=== PATIENT | male | born 1945 | race Caucasian/White ===

== ENCOUNTER 2020-11-08 06:40 | Inpatient (IN) ==
[~2020-11-08 06:40] MED LIST: *HR* Etomidate 20 MG/10 ML AMPUL IVP ONE; *HR* PHENYLEPHRINE 1,000 MCG/10 ML SYRINGE IVP ONE; *HR* Rocuronium Bromide 50 MG/5 ML VIAL ONE; EPINEPHrine 1 MG/ML VIAL ONE; Famotidine 20 MG/2 ML VIAL ONE; NiCARdipine 2.5 MG/10 ML Syringe IVPB ONE
[2020-11-08] MEDS ORDERED: Protamine Sulfate 250 MG/25 ML VIAL IVP ONE (06:42)
[2020-11-08] MEDS ORDERED: Tranexamic Acid 1,000 MG/10 ML VIAL ONE ×2 (06:42→12:36)
[2020-11-08] MEDS ORDERED: Calcium Gluconate 1,000 MG/10 ML VIAL ONE (06:42)
[2020-11-08] MEDS ORDERED: *HR* FentaNYL (PF) 1,000 MCG/20 ML VIAL ONE (06:45)
[2020-11-08] MEDS ORDERED: *HR* Midazolam HCl 5 MG/5 ML VIAL IVP ONE (06:45)
[2020-11-08] MEDS ORDERED: Norepinephrine 4 MG in 0.9 % Sodium Chloride 250 ML IVC PRN (07:45)
[2020-11-08] MEDS ORDERED: Dextrose 50 % in Water (Vial) 30 ML, Sodium Bicarbonate 20 MEQ, Lidocaine 1% 5 ML, Insu... TH ONE ×3 (07:45)
[2020-11-08] MEDS ORDERED: Dextrose 50 % in Water (Vial) 30 ML, Sodium Bicarbonate 20 MEQ, Potassium Chloride 15 M... TH ONE (07:45)
[2020-11-08] MEDS ORDERED: Insulin Human Regular 100 UNIT in 0.9 % Sodium Chloride 100 ML IV PRN (07:45)
[2020-11-08] MEDS ORDERED: Heparin 15,000 UNIT in 0.9 % Sodium Chloride 500 ML IV ONE (07:45)
[2020-11-08] MEDS ORDERED: Vancomycin 1,250 MG/262.5 ML IV.SOLN IVPB ONE (07:51)
[2020-11-08] MEDS ORDERED: Chlorhexidine Rinse 15 ML MOUTHWASH MM ONE (07:54)
[2020-11-08] MEDS ORDERED: *HR* Heparin 10,000 UNIT/10 ML VIAL IR ONE (08:13)
[2020-11-08] MEDS ORDERED: *HR* Phenylephrine 10 MG/ML VIAL IVC ONE (08:13)
[2020-11-08] MEDS ORDERED: *HR* Magnesium Sulfate 2 GM/50 ML PIGGYBACK IVPB ONE (08:13)
[2020-11-08] MEDS ORDERED: Mannitol 25% vial 12.5 GM/50 ML VIAL IVPB ONE (08:13)
[2020-11-08] MEDS ORDERED: Albumin Human 25% 25 GM/100 ML IV.SOLN IVPB ONE (08:13)
[2020-11-08] MEDS ORDERED: Tranexamic Acid 1,000 MG/10 ML VIAL IR ONE (08:13)
[2020-11-08] MEDS ORDERED: Lidocaine 2% Syringe 100 MG/5 ML IVP ONE (08:13)
[2020-11-08] MEDS ORDERED: Ringers Solution, Lactated 1,000 ML IVC SCH (10:15)
[2020-11-08] MEDS ORDERED: Papaverine 60 MG/2 ML VIAL IVP ONE (10:52)
[2020-11-08 11:25] LABS: ABG Base Excess 0 mEq/L (-2 to 3); ABG Chloride 105 mEq/L (98-107); ABG Glucose 126 mg/dL (60-95); ABG HCO3 24 mEq/L (21-27); ABG Ionized Calcium 1.07 mmol/L (1.15-1.35); ABG Oxygen Saturation 100 % (95-98); ABG PCO2 35 mmHg (35-45); ABG PH 7.45 pH Units (7.32-7.45); ABG PO2 343 mmHg (85-104); ABG TCO2 25 mEq/L (20-26)
[2020-11-08] MEDS ORDERED: ceFAZolin 2,000 MG in Water for inj. (sterile) 20 ML IVP ONE (12:09)
[2020-11-08] MEDS ORDERED: Amiodarone Premix 360 MG/200 ML BAG IVC ONE ×2 (12:37→15:02)
[2020-11-08] MEDS ORDERED: *HR* Amiodarone 150 MG/3 ML VIAL IVPB ONE (12:37)
[2020-11-08 12:52] LABS: ABG Base Excess 0 mEq/L (-2 to 3); ABG Chloride 102 mEq/L (98-107); ABG Glucose 151 mg/dL (60-95); ABG HCO3 25 mEq/L (21-27); ABG Ionized Calcium 1.11 mmol/L (1.15-1.35); ABG Oxygen Saturation 100 % (95-98); ABG PCO2 39 mmHg (35-45); ABG PH 7.41 pH Units (7.32-7.45); ABG PO2 165 mmHg (85-104); ABG TCO2 26 mEq/L (20-26)
[2020-11-08 13:18] LABS: ABG Base Excess -1 mEq/L (-2 to 3); ABG Chloride 99 mEq/L (98-107); ABG Glucose 190 mg/dL (60-95); ABG HCO3 24 mEq/L (21-27); ABG Ionized Calcium 0.84 mmol/L (1.15-1.35); ABG PCO2 42 mmHg (35-45); ABG PH 7.37 pH Units (7.32-7.45); ABG PO2 > 630 mmHg (85-104); ABG TCO2 25 mEq/L (20-26)
[2020-11-08 13:46] LABS: ABG Base Excess 1 mEq/L (-2 to 3); ABG Chloride 98 mEq/L (98-107); ABG Glucose 222 mg/dL (60-95); ABG HCO3 26 mEq/L (21-27); ABG Ionized Calcium 0.89 mmol/L (1.15-1.35); ABG Oxygen Saturation 100 % (95-98); ABG PCO2 38 mmHg (35-45); ABG PH 7.44 pH Units (7.32-7.45); ABG PO2 578 mmHg (85-104); ABG TCO2 27 mEq/L (20-26)
[2020-11-08] MEDS ORDERED: Albumin Human 5% 12.5 GM/250 ML IV.SOLN ONE (14:16)
[2020-11-08 14:42] LABS: ABG Base Excess 0 mEq/L (-2 to 3); ABG Chloride 99 mEq/L (98-107); ABG Glucose 187 mg/dL (60-95); ABG HCO3 25 mEq/L (21-27); ABG Ionized Calcium 1.13 mmol/L (1.15-1.35); ABG Oxygen Saturation 96 % (95-98); ABG PCO2 44 mmHg (35-45); ABG PH 7.37 pH Units (7.32-7.45); ABG PO2 82 mmHg (85-104); ABG TCO2 27 mEq/L (20-26)
[2020-11-08] MEDS ORDERED: Potassium Chloride 40 MEQ/200 ML BAG IVPB PRN (15:02)
[2020-11-08] MEDS ORDERED: Insulin Regular, Human 100 UNIT/ML IV PRN (15:02)
[2020-11-08] MEDS ORDERED: Albumin Human 5% 12.5 GM/250 ML IV.SOLN IVPB PRN (15:02)
[2020-11-08] MEDS ORDERED: *HR* Dextrose 50 % in Water (Vial) 50 ML VIAL IVP PRN (15:02)
[2020-11-08] MEDS ORDERED: Acetaminophen 325 MG TABLET PO PRN (15:02)
[2020-11-08] MEDS: Norepinephrine 4 MG/254 ML IV.SOLN IVC SCH (15:13)
[2020-11-08] MEDS: Insulin Human Regular 100 UNIT in 0.9 % Sodium Chloride 100 ML IVC SCH (15:30)
[2020-11-08 15:38] LABS: ABG Base Excess 1 mEq/L (-2 to 3); ABG HCO3 25 mEq/L (21-27); ABG Oxygen Saturation 100 % (95-98); ABG PCO2 38 mmHg (35-45); ABG PH 7.43 pH Units (7.32-7.45); ABG PO2 174 mmHg (85-104); ABG TCO2 26 mEq/L (20-26); Blood Gas Modality ASSIST CONTROL; Blood Gas VT 550 cc
[2020-11-08 15:40] LABS: Basophils % 0.4 %; Eosinophils # 0.3 K/mcL (0.0-0.6); Eosinophils % 4.1 %; Hematocrit 26.1 % (37.5-50.1); Hemoglobin 8.8 g/dL (12.9-16.9); Immature Granulocytes % 1.4 % (0-4); Lymphocytes # 0.7 K/mcL (0.6-4.6); Lymphocytes % 9.1 %; Mean Corpuscular HGB Conc 33.7 g/dL (31.6-35.5); Mean Corpuscular Hemoglobin 29.2 pg (28.0-33.3); Mean Corpuscular Volume 86.7 fL (83.0-100.0); Monocytes # 0.7 K/mcL (0.0-1.3); Monocytes % 8.2 %; Neutrophils # 6.2 K/mcL (1.6-8.9); Platelet Count 213 K/mcL (140-400); Red Blood Count 3.01 M/mcL (4.19-5.50); Red Cell Distribution Width 13.3 % (11.5-14.5); Segmented Neutrophils % 76.8 %; White Blood Count 8.1 K/mcL (4.3-11.1)
[2020-11-08] MEDS: niCARdipine 20 MG/200 ML MLS IVC SCH ×2 (15:45→21:06)
[2020-11-08] MEDS: 0.9 % Sodium Chloride 1,000 ML IVC SCH (15:45)
[2020-11-08 15:48] LABS: INR 1.4; Prothrombin Time 16.2 Seconds (9.4-12.1)
[2020-11-08 15:51] LABS: Activated Partial Thrombo Time 28.9 Seconds (26.0-36.0)
[2020-11-08 15:55] LABS: Calcium 8.1 mg/dL (8.6-10.3); Magnesium 2.3 mg/dL (1.6-2.6); Potassium 4.3 mEq/L (3.5-5.1)
[2020-11-08] MEDS: CeFAZolin 2 GM/120 ML BAG IVPB SCH ×2 (16:00→23:14)
[2020-11-08] MEDS: Amiodarone Premix 360 MG/200 ML BAG IVC SCH (19:38)
[2020-11-08] MEDS: *HR* FentaNYL (PF) 100 MCG/2 ML VIAL IVP PRN (19:39)
[2020-11-08] MEDS: Chlorhexidine Rinse 15 ML MOUTHWASH MM SCH (19:47)
[2020-11-08 19:59] LABS: ABG Base Excess 0 mEq/L (-2 to 3); ABG HCO3 24 mEq/L (21-27); ABG Oxygen Saturation 97 % (95-98); ABG PCO2 36 mmHg (35-45); ABG PH 7.44 pH Units (7.32-7.45); ABG PO2 85 mmHg (85-104); ABG TCO2 25 mEq/L (20-26); Blood Gas Modality ASSIST CONTROL; Blood Gas VT 550 cc
[2020-11-08] MEDS: *HR* OxyCODONE/APAP 5/325 TABLET PO PRN (22:22)
[2020-11-08 23:05] LABS: ABG Base Excess 0 mEq/L (-2 to 3); ABG HCO3 26 mEq/L (21-27); ABG Oxygen Saturation 95 % (95-98); ABG PCO2 47 mmHg (35-45); ABG PH 7.35 pH Units (7.32-7.45); ABG PO2 81 mmHg (85-104); ABG TCO2 28 mEq/L (20-26); Blood Gas Modality ASSIST CONTROL; Blood Gas VT 550 cc
[2020-11-08 23:44] LABS: ABG Base Excess 0 mEq/L (-2 to 3); ABG HCO3 26 mEq/L (21-27); ABG Oxygen Saturation 92 % (95-98); ABG PCO2 47 mmHg (35-45); ABG PH 7.35 pH Units (7.32-7.45); ABG PO2 66 mmHg (85-104); ABG TCO2 28 mEq/L (20-26)
[2020-11-09] MEDS: niCARdipine 20 MG/200 ML MLS IVC SCH ×5 (03:05→20:01)
[2020-11-09] MEDS: *HR* OxyCODONE/APAP 5/325 TABLET PO PRN ×5 (03:11→23:01)
[2020-11-09 04:24] LABS: Basophils % 0.4 %; Eosinophils % 0.1 %; Hematocrit 29.4 % (37.5-50.1); Hemoglobin 9.6 g/dL (12.9-16.9); Immature Granulocytes % 0.6 % (0-4); Lymphocytes # 0.7 K/mcL (0.6-4.6); Lymphocytes % 6.6 %; Mean Corpuscular HGB Conc 32.7 g/dL (31.6-35.5); Mean Corpuscular Hemoglobin 28.8 pg (28.0-33.3); Mean Corpuscular Volume 88.3 fL (83.0-100.0); Mean Platelet Volume 10.7 fL (9.4-12.4); Monocytes # 0.9 K/mcL (0.0-1.3); Monocytes % 8.4 %; Neutrophils # 8.6 K/mcL (1.6-8.9); Platelet Count 240 K/mcL (140-400); Red Blood Count 3.33 M/mcL (4.19-5.50); Red Cell Distribution Width 13.6 % (11.5-14.5); Segmented Neutrophils % 83.9 %; White Blood Count 10.2 K/mcL (4.3-11.1)
[2020-11-09 04:38] LABS: Potassium 4.9 mEq/L (3.5-5.1)
[2020-11-09] MEDS: 0.9 % Sodium Chloride 1,000 ML IVC SCH ×2 (05:17→19:28)
[2020-11-09] MEDS: Amiodarone Premix 360 MG/200 ML BAG IVC SCH (06:05)
[2020-11-09] MEDS: Pantoprazole 40 MG VIAL IVP SCH (07:11)
[2020-11-09] MEDS: Chlorhexidine Rinse 15 ML MOUTHWASH MM SCH ×2 (07:12→19:28)
[2020-11-09] MEDS: *HR* FentaNYL (PF) 100 MCG/2 ML VIAL IVP PRN (10:42)
[2020-11-09] MEDS: Norepinephrine 4 MG/254 ML IV.SOLN IVC SCH (15:22)
[2020-11-09] MEDS: DilTIAZem 50 MG/50 ML IV.SOLN IVC SCH ×2 (15:40→19:32)
[2020-11-09] MEDS: Insulin Human Regular 100 UNIT in 0.9 % Sodium Chloride 100 ML IVC SCH (17:26)
[2020-11-09] MEDS: Insulin LISPRO 300 UNITS/3 ML VIAL SUBQ SCH (19:29)
[2020-11-09] MEDS: *HR* Heparin 5,000 UNIT/ML VIAL SQ SCH (20:01)
[2020-11-09] MEDS ORDERED: Insulin LISPRO 300 UNITS/3 ML VIAL SUBQ SCH (21:00)
[2020-11-10] MEDS: niCARdipine 20 MG/200 ML MLS IVC SCH ×3 (00:05→03:42)
[2020-11-10] MEDS: DilTIAZem 50 MG/50 ML IV.SOLN IVC SCH ×6 (00:20→23:06)
[2020-11-10 04:09] LABS: Basophils % 0.3 %; Eosinophils % 0.2 %; Hemoglobin 9.3 g/dL (12.9-16.9); Immature Granulocytes % 0.5 % (0-4); Lymphocytes # 1.2 K/mcL (0.6-4.6); Lymphocytes % 9.3 %; Mean Corpuscular HGB Conc 32.1 g/dL (31.6-35.5); Mean Corpuscular Hemoglobin 28.6 pg (28.0-33.3); Mean Corpuscular Volume 89.2 fL (83.0-100.0); Mean Platelet Volume 10.4 fL (9.4-12.4); Monocytes # 1.3 K/mcL (0.0-1.3); Monocytes % 10.7 %; Neutrophils # 9.8 K/mcL (1.6-8.9); Platelet Count 232 K/mcL (140-400); Red Blood Count 3.25 M/mcL (4.19-5.50); Red Cell Distribution Width 13.9 % (11.5-14.5); White Blood Count 12.4 K/mcL (4.3-11.1)
[2020-11-10 04:24] LABS: Calcium 7.8 mg/dL (8.6-10.3); Potassium 4.6 mEq/L (3.5-5.1)
[2020-11-10] MEDS: *HR* Heparin 5,000 UNIT/ML VIAL SQ SCH ×2 (05:29→16:25)
[2020-11-10] MEDS: *HR* OxyCODONE/APAP 5/325 TABLET PO PRN ×2 (05:30→19:35)
[2020-11-10] MEDS: 0.9 % Sodium Chloride 1,000 ML IVC SCH (08:09)
[2020-11-10] MEDS: Insulin LISPRO 300 UNITS/3 ML VIAL SUBQ SCH ×4 (08:10→19:26)
[2020-11-10] MEDS: Chlorhexidine Rinse 15 ML MOUTHWASH MM SCH ×2 (08:10→19:26)
[2020-11-10] MEDS: Pantoprazole 40 MG VIAL IVP SCH (08:11)
[2020-11-10] MEDS ORDERED: *HR* Amiodarone 200 MG TABLET PO SCH (09:00)
[2020-11-10] MEDS ORDERED: 0.9 % Sodium Chloride 1,000 ML IVC SCH (10:12)
[2020-11-10] MEDS ORDERED: Dextrose Gel 15 GM/37.5 ML TUBE PO PRN ×2 (10:12)
[2020-11-10] MEDS ORDERED: *HR* Dextrose 50 % in Water (Vial) 50 ML VIAL IVP PRN (10:12)
[2020-11-10] MEDS ORDERED: D5% in Water 1,000 ML IVC PRN (10:12)
[2020-11-10] MEDS: Insulin DETEMIR 100 UNIT/ML X5UNITS SUBQ SCH (19:26)
[2020-11-10] MEDS ORDERED: Furosemide 40 MG/4 ML VIAL IVP ONE (21:49)
[2020-11-11] MEDS: *HR* OxyCODONE/APAP 5/325 TABLET PO PRN (04:29)
[2020-11-11 04:30] LABS: Basophils % 0.3 %; Eosinophils # 0.2 K/mcL (0.0-0.6); Eosinophils % 1.5 %; Hematocrit 25.9 % (37.5-50.1); Hemoglobin 8.1 g/dL (12.9-16.9); Immature Granulocytes % 0.7 % (0-4); Lymphocytes # 0.9 K/mcL (0.6-4.6); Lymphocytes % 8.2 %; Mean Corpuscular HGB Conc 31.3 g/dL (31.6-35.5); Mean Corpuscular Hemoglobin 28.4 pg (28.0-33.3); Mean Corpuscular Volume 90.9 fL (83.0-100.0); Mean Platelet Volume 11.1 fL (9.4-12.4); Monocytes % 9.1 %; Neutrophils # 8.9 K/mcL (1.6-8.9); Platelet Count 201 K/mcL (140-400); Red Blood Count 2.85 M/mcL (4.19-5.50); Red Cell Distribution Width 13.7 % (11.5-14.5); Segmented Neutrophils % 80.2 %; White Blood Count 11.1 K/mcL (4.3-11.1)
[2020-11-11] MEDS: DilTIAZem 50 MG/50 ML IV.SOLN IVC SCH ×2 (04:30→14:36)
[2020-11-11 04:49] LABS: Calcium 7.5 mg/dL (8.6-10.3); Potassium 3.8 mEq/L (3.5-5.1)
[2020-11-11] MEDS: *HR* Heparin 5,000 UNIT/ML VIAL SQ SCH ×2 (05:09→17:52)
[2020-11-11] MEDS ORDERED: Furosemide 40 MG/4 ML VIAL IVP ONE ×2 (06:00→11:20)
[2020-11-11] MEDS: *HR* Amiodarone 200 MG TABLET PO SCH (07:43)
[2020-11-11] MEDS: Insulin LISPRO 300 UNITS/3 ML VIAL SUBQ SCH ×8 (07:43→20:18)
[2020-11-11] MEDS: Pantoprazole 40 MG VIAL IVP SCH (07:43)
[2020-11-11] MEDS: Chlorhexidine Rinse 15 ML MOUTHWASH MM SCH ×2 (07:43→20:15)
[2020-11-11] MEDS ORDERED: Albumin 25% 25gram/100mL 25 GM/100 ML IV.SOLN IVPB ONE (11:18)
[2020-11-11] MEDS: Insulin DETEMIR 100 UNIT/ML X5UNITS SUBQ SCH (20:15)
[2020-11-12] MEDS: Acetaminophen 325 MG TABLET PO PRN (03:29)
[2020-11-12] MEDS: DilTIAZem 50 MG/50 ML IV.SOLN IVC SCH ×3 (04:23→22:54)
[2020-11-12 04:31] LABS: Basophils % 0.4 %; Eosinophils # 0.5 K/mcL (0.0-0.6); Eosinophils % 4.8 %; Hemoglobin 8.1 g/dL (12.9-16.9); Lymphocytes # 1.3 K/mcL (0.6-4.6); Lymphocytes % 12.6 %; Mean Corpuscular HGB Conc 32.4 g/dL (31.6-35.5); Mean Corpuscular Hemoglobin 28.7 pg (28.0-33.3); Mean Corpuscular Volume 88.7 fL (83.0-100.0); Mean Platelet Volume 10.4 fL (9.4-12.4); Monocytes # 0.9 K/mcL (0.0-1.3); Monocytes % 9.3 %; Neutrophils # 7.2 K/mcL (1.6-8.9); Platelet Count 193 K/mcL (140-400); Red Blood Count 2.82 M/mcL (4.19-5.50); Red Cell Distribution Width 13.8 % (11.5-14.5); Segmented Neutrophils % 71.9 %
[2020-11-12 05:09] LABS: Potassium 3.8 mEq/L (3.5-5.1)
[2020-11-12 05:10] LABS: Calcium 7.7 mg/dL (8.6-10.3)
[2020-11-12] MEDS: *HR* Heparin 5,000 UNIT/ML VIAL SQ SCH ×2 (05:50→17:15)
[2020-11-12] MEDS: Insulin LISPRO 300 UNITS/3 ML VIAL SUBQ SCH ×8 (07:23→20:12)
[2020-11-12] MEDS: Pantoprazole 40 MG VIAL IVP SCH (08:22)
[2020-11-12] MEDS: Chlorhexidine Rinse 15 ML MOUTHWASH MM SCH ×2 (08:22→20:11)
[2020-11-12] MEDS: *HR* Amiodarone 200 MG TABLET PO SCH (08:23)
[2020-11-12] MEDS: *HR* OxyCODONE/APAP 5/325 TABLET PO PRN (08:32)
[2020-11-12] MEDS: Insulin DETEMIR 100 UNIT/ML X5UNITS SUBQ SCH (20:11)
[2020-11-13] MEDS ORDERED: *HR* Atropine Sulfate 1 MG/10 ML SYRINGE ONE (01:52)
[2020-11-13 03:34] LABS: Basophils % 0.3 %; Eosinophils # 0.4 K/mcL (0.0-0.6); Eosinophils % 3.9 %; Hematocrit 25.5 % (37.5-50.1); Hemoglobin 8.2 g/dL (12.9-16.9); Immature Granulocytes % 0.8 % (0-4); Lymphocytes # 1.3 K/mcL (0.6-4.6); Lymphocytes % 11.8 %; Mean Corpuscular HGB Conc 32.2 g/dL (31.6-35.5); Mean Corpuscular Hemoglobin 28.4 pg (28.0-33.3); Mean Corpuscular Volume 88.2 fL (83.0-100.0); Mean Platelet Volume 10.7 fL (9.4-12.4); Monocytes % 9.2 %; Neutrophils # 7.9 K/mcL (1.6-8.9); Platelet Count 215 K/mcL (140-400); Red Blood Count 2.89 M/mcL (4.19-5.50); Red Cell Distribution Width 13.9 % (11.5-14.5); White Blood Count 10.6 K/mcL (4.3-11.1)
[2020-11-13 03:35] LABS: VBG Ionized Calcium 1.08 mmol/L (1.15-1.35)
[2020-11-13 03:53] LABS: Calcium 8.1 mg/dL (8.6-10.3); Magnesium 1.9 mg/dL (1.6-2.6); Phosphorous 3.5 mg/dL (2.7-4.5)
[2020-11-13] MEDS: *HR* Heparin 5,000 UNIT/ML VIAL SQ SCH ×2 (06:18→17:01)
[2020-11-13] MEDS: Insulin LISPRO 300 UNITS/3 ML VIAL SUBQ SCH ×8 (08:04→20:02)
[2020-11-13] MEDS: Pantoprazole 40 MG VIAL IVP SCH (08:10)
[2020-11-13] MEDS: *HR* Amiodarone 200 MG TABLET PO SCH (08:10)
[2020-11-13] MEDS: Chlorhexidine Rinse 15 ML MOUTHWASH MM SCH ×2 (08:10→20:00)
[2020-11-13] MEDS: DilTIAZem 50 MG/50 ML IV.SOLN IVC SCH ×2 (10:10→15:41)
[2020-11-13] MEDS: Insulin DETEMIR 100 UNIT/ML X5UNITS SUBQ SCH (20:01)
[2020-11-14] MEDS: DilTIAZem 50 MG/50 ML IV.SOLN IVC SCH (03:09)
[2020-11-14 04:01] LABS: VBG Ionized Calcium 1.12 mmol/L (1.15-1.35)
[2020-11-14 04:02] LABS: Hematocrit 25.6 % (37.5-50.1); Hemoglobin 8.5 g/dL (12.9-16.9); Mean Corpuscular HGB Conc 33.2 g/dL (31.6-35.5); Mean Corpuscular Hemoglobin 29.5 pg (28.0-33.3); Mean Corpuscular Volume 88.9 fL (83.0-100.0); Mean Platelet Volume 10.5 fL (9.4-12.4); Platelet Count 229 K/mcL (140-400); Red Blood Count 2.88 M/mcL (4.19-5.50); Red Cell Distribution Width 13.8 % (11.5-14.5)
[2020-11-14 04:21] LABS: Calcium 8.3 mg/dL (8.6-10.3); Phosphorous 3.3 mg/dL (2.7-4.5); Potassium 3.8 mEq/L (3.5-5.1)
[2020-11-14] MEDS: *HR* Heparin 5,000 UNIT/ML VIAL SQ SCH ×2 (05:01→17:27)
[2020-11-14] MEDS: Insulin LISPRO 300 UNITS/3 ML VIAL SUBQ SCH ×6 (08:09→20:49)
[2020-11-14] MEDS: Chlorhexidine Rinse 15 ML MOUTHWASH MM SCH ×2 (08:09→20:48)
[2020-11-14] MEDS: Pantoprazole 40 MG VIAL IVP SCH (08:09)
[2020-11-14] MEDS: *HR* Amiodarone 200 MG TABLET PO SCH (08:10)
[2020-11-14] MEDS: *HR* OxyCODONE/APAP 5/325 TABLET PO PRN ×3 (10:03→22:39)
[2020-11-14] MEDS: Insulin DETEMIR 100 UNIT/ML X5UNITS SUBQ SCH (20:49)
[2020-11-15 04:22] LABS: Basophils # 0.1 K/mcL (0.0-0.2); Basophils % 0.6 %; Eosinophils # 0.4 K/mcL (0.0-0.6); Eosinophils % 4.8 %; Hematocrit 24.9 % (37.5-50.1); Hemoglobin 8.1 g/dL (12.9-16.9); Immature Granulocytes % 1.3 % (0-4); Lymphocytes # 1.5 K/mcL (0.6-4.6); Lymphocytes % 16.9 %; Mean Corpuscular HGB Conc 32.5 g/dL (31.6-35.5); Mean Corpuscular Hemoglobin 28.5 pg (28.0-33.3); Mean Corpuscular Volume 87.7 fL (83.0-100.0); Mean Platelet Volume 10.3 fL (9.4-12.4); Monocytes # 0.9 K/mcL (0.0-1.3); Monocytes % 10.6 %; Neutrophils # 5.7 K/mcL (1.6-8.9); Platelet Count 220 K/mcL (140-400); Red Blood Count 2.84 M/mcL (4.19-5.50); Red Cell Distribution Width 14.1 % (11.5-14.5); Segmented Neutrophils % 65.8 %; White Blood Count 8.6 K/mcL (4.3-11.1)
[2020-11-15 04:42] LABS: Calcium 8.2 mg/dL (8.6-10.3); Potassium 3.8 mEq/L (3.5-5.1)
[2020-11-15] MEDS: *HR* Heparin 5,000 UNIT/ML VIAL SQ SCH ×2 (05:44→18:17)
[2020-11-15] MEDS: Insulin LISPRO 300 UNITS/3 ML VIAL SUBQ SCH ×4 (08:19→19:36)
[2020-11-15] MEDS: *HR* Amiodarone 200 MG TABLET PO SCH (08:28)
[2020-11-15] MEDS: Chlorhexidine Rinse 15 ML MOUTHWASH MM SCH ×2 (08:29→19:36)
[2020-11-15] MEDS: *HR* OxyCODONE/APAP 5/325 TABLET PO PRN ×3 (09:39→21:18)
[2020-11-15] MEDS: DilTIAZem CD (24hr) 180 MG CAP.ER.24H PO SCH (11:07)
[2020-11-15] MEDS: Insulin DETEMIR 100 UNIT/ML X5UNITS SUBQ SCH (19:36)
[2020-11-16] MEDS: *HR* Heparin 5,000 UNIT/ML VIAL SQ SCH ×2 (05:27→17:56)
[2020-11-16 07:41] LABS: Calcium 8.5 mg/dL (8.6-10.3); Potassium 4.5 mEq/L (3.5-5.1)
[2020-11-16] MEDS: Insulin LISPRO 300 UNITS/3 ML VIAL SUBQ SCH ×4 (08:16→20:31)
[2020-11-16] MEDS: DilTIAZem CD (24hr) 180 MG CAP.ER.24H PO SCH (08:18)
[2020-11-16] MEDS: *HR* Amiodarone 200 MG TABLET PO SCH (08:18)
[2020-11-16] MEDS: Chlorhexidine Rinse 15 ML MOUTHWASH MM SCH ×2 (08:22→20:30)
[2020-11-16] MEDS: *HR* OxyCODONE/APAP 5/325 TABLET PO PRN ×4 (08:23→23:18)
[2020-11-16] MEDS: *HR* Warfarin 2.5 MG TABLET PO SCH (17:55)
[2020-11-16] MEDS: Insulin DETEMIR 100 UNIT/ML X5UNITS SUBQ SCH (20:31)
[2020-11-17 01:20] LABS: Calcium 8.2 mg/dL (8.6-10.3)
[2020-11-17] MEDS: *HR* Heparin 5,000 UNIT/ML VIAL SQ SCH ×2 (04:54→17:35)
[2020-11-17] MEDS: *HR* OxyCODONE/APAP 5/325 TABLET PO PRN ×3 (04:54→15:44)
[2020-11-17] MEDS: Insulin LISPRO 300 UNITS/3 ML VIAL SUBQ SCH ×4 (08:03→20:42)
[2020-11-17] MEDS: *HR* Amiodarone 200 MG TABLET PO SCH (08:53)
[2020-11-17] MEDS: DilTIAZem CD (24hr) 180 MG CAP.ER.24H PO SCH (08:54)
[2020-11-17] MEDS: Chlorhexidine Rinse 15 ML MOUTHWASH MM SCH ×2 (08:54→20:42)
[2020-11-17] MEDS: *HR* Warfarin 2.5 MG TABLET PO SCH (17:35)
[2020-11-17] MEDS ORDERED: Warfarin perPT PO PRN (18:00)
[2020-11-17 20:29] LABS: INR 1.2; Prothrombin Time 14.1 Seconds (9.4-12.1)
[2020-11-17] MEDS: Insulin DETEMIR 100 UNIT/ML X5UNITS SUBQ SCH (20:43)
[2020-11-17] MEDS ORDERED: *HR* Warfarin 2.5 MG TABLET PO ONE (21:11)
[2020-11-18] MEDS: *HR* Heparin 5,000 UNIT/ML VIAL SQ SCH ×2 (06:30→17:55)
[2020-11-18] MEDS: DilTIAZem CD (24hr) 180 MG CAP.ER.24H PO SCH (07:48)
[2020-11-18] MEDS: *HR* Amiodarone 200 MG TABLET PO SCH (07:48)
[2020-11-18] MEDS: Insulin LISPRO 300 UNITS/3 ML VIAL SUBQ SCH ×4 (07:49→20:41)
[2020-11-18] MEDS: Chlorhexidine Rinse 15 ML MOUTHWASH MM SCH ×2 (07:49→20:40)
[2020-11-18] MEDS: *HR* OxyCODONE/APAP 5/325 TABLET PO PRN ×2 (08:34→20:40)
[2020-11-18 11:12] LABS: Calcium 8.9 mg/dL (8.6-10.3); Potassium 4.6 mEq/L (3.5-5.1)
[2020-11-18] MEDS: Acetaminophen 325 MG TABLET PO PRN (13:33)
[2020-11-18 13:47] LABS: INR 1.3; Prothrombin Time 14.6 Seconds (9.4-12.1)
[2020-11-18] MEDS ORDERED: *HR* Warfarin 2.5 MG TABLET PO ONE (18:00)
[2020-11-18] MEDS: Insulin DETEMIR 100 UNIT/ML X5UNITS SUBQ SCH (20:41)
[2020-11-19 02:02] LABS: Basophils % 0.3 %; Eosinophils # 0.3 K/mcL (0.0-0.6); Eosinophils % 3.4 %; Hematocrit 23.6 % (37.5-50.1); Hemoglobin 7.6 g/dL (12.9-16.9); Immature Granulocytes % 0.9 % (0-4); Lymphocytes # 1.5 K/mcL (0.6-4.6); Lymphocytes % 16.1 %; Mean Corpuscular HGB Conc 32.2 g/dL (31.6-35.5); Mean Corpuscular Hemoglobin 28.7 pg (28.0-33.3); Mean Corpuscular Volume 89.1 fL (83.0-100.0); Mean Platelet Volume 10.4 fL (9.4-12.4); Monocytes # 0.9 K/mcL (0.0-1.3); Monocytes % 9.3 %; Neutrophils # 6.5 K/mcL (1.6-8.9); Platelet Count 243 K/mcL (140-400); Red Blood Count 2.65 M/mcL (4.19-5.50); Red Cell Distribution Width 14.2 % (11.5-14.5); White Blood Count 9.3 K/mcL (4.3-11.1)
[2020-11-19 02:23] LABS: Calcium 8.5 mg/dL (8.6-10.3); Potassium 4.3 mEq/L (3.5-5.1)
[2020-11-19] MEDS: *HR* Heparin 5,000 UNIT/ML VIAL SQ SCH ×2 (04:15→16:48)
[2020-11-19] MEDS: Acetaminophen 325 MG TABLET PO PRN (04:15)
[2020-11-19 06:30] LABS: INR 1.6; Prothrombin Time 17.9 Seconds (9.4-12.1)
[2020-11-19] MEDS: *HR* Amiodarone 200 MG TABLET PO SCH (07:42)
[2020-11-19] MEDS: Chlorhexidine Rinse 15 ML MOUTHWASH MM SCH ×2 (07:42→20:40)
[2020-11-19] MEDS: DilTIAZem CD (24hr) 180 MG CAP.ER.24H PO SCH (07:42)
[2020-11-19] MEDS: Insulin LISPRO 300 UNITS/3 ML VIAL SUBQ SCH ×4 (07:45→20:42)
[2020-11-19] MEDS ORDERED: *HR* Warfarin 2.5 MG TABLET PO ONE (18:00)
[2020-11-19] MEDS: Insulin DETEMIR 100 UNIT/ML X5UNITS SUBQ SCH (20:40)
[2020-11-19] MEDS: *HR* OxyCODONE/APAP 5/325 TABLET PO PRN (20:49)
[2020-11-20 01:37] LABS: INR 1.8
[2020-11-20 01:49] LABS: Calcium 8.5 mg/dL (8.6-10.3); Potassium 4.1 mEq/L (3.5-5.1)
[2020-11-20] MEDS: *HR* Heparin 5,000 UNIT/ML VIAL SQ SCH ×2 (04:59→16:49)
[2020-11-20] MEDS: Chlorhexidine Rinse 15 ML MOUTHWASH MM SCH ×2 (07:34→20:08)
[2020-11-20] MEDS: *HR* Amiodarone 200 MG TABLET PO SCH (07:34)
[2020-11-20] MEDS: DilTIAZem CD (24hr) 180 MG CAP.ER.24H PO SCH (07:34)
[2020-11-20] MEDS: Insulin LISPRO 300 UNITS/3 ML VIAL SUBQ SCH ×4 (07:35→20:09)
[2020-11-20] MEDS ORDERED: *HR* Warfarin 2.5 MG TABLET PO ONE (18:00)
[2020-11-20] MEDS: *HR* OxyCODONE/APAP 5/325 TABLET PO PRN (20:08)
[2020-11-20] MEDS: Insulin DETEMIR 100 UNIT/ML X5UNITS SUBQ SCH (20:09)
[2020-11-21] MEDS: *HR* Heparin 5,000 UNIT/ML VIAL SQ SCH ×2 (04:17→17:15)
[2020-11-21 05:07] LABS: INR 2.1; Prothrombin Time 23.4 Seconds (9.4-12.1)
[2020-11-21 05:24] LABS: Calcium 8.7 mg/dL (8.6-10.3); Potassium 4.4 mEq/L (3.5-5.1)
[2020-11-21] MEDS: DilTIAZem CD (24hr) 180 MG CAP.ER.24H PO SCH (09:04)
[2020-11-21] MEDS: *HR* Amiodarone 200 MG TABLET PO SCH (09:04)
[2020-11-21] MEDS: Chlorhexidine Rinse 15 ML MOUTHWASH MM SCH ×2 (09:04→20:22)
[2020-11-21] MEDS: Insulin LISPRO 300 UNITS/3 ML VIAL SUBQ SCH ×4 (09:07→20:22)
[2020-11-21] MEDS: *HR* OxyCODONE/APAP 5/325 TABLET PO PRN ×2 (13:47→20:23)
[2020-11-21] MEDS ORDERED: *HR* Warfarin 2.5 MG TABLET PO ONE (18:00)
[2020-11-21] MEDS: Insulin DETEMIR 100 UNIT/ML X5UNITS SUBQ SCH (20:22)
[2020-11-22] MEDS: Acetaminophen 325 MG TABLET PO PRN (00:31)
[2020-11-22 01:16] LABS: Basophils % 0.5 %; Eosinophils # 0.4 K/mcL (0.0-0.6); Eosinophils % 4.7 %; Hematocrit 24.1 % (37.5-50.1); Hemoglobin 7.7 g/dL (12.9-16.9); Immature Granulocytes % 0.8 % (0-4); Lymphocytes # 1.3 K/mcL (0.6-4.6); Lymphocytes % 15.2 %; Mean Corpuscular Hemoglobin 28.8 pg (28.0-33.3); Mean Corpuscular Volume 90.3 fL (83.0-100.0); Mean Platelet Volume 10.3 fL (9.4-12.4); Monocytes # 0.8 K/mcL (0.0-1.3); Monocytes % 9.4 %; Neutrophils # 5.8 K/mcL (1.6-8.9); Platelet Count 265 K/mcL (140-400); Red Blood Count 2.67 M/mcL (4.19-5.50); Red Cell Distribution Width 14.5 % (11.5-14.5); Segmented Neutrophils % 69.4 %; White Blood Count 8.3 K/mcL (4.3-11.1)
[2020-11-22 01:24] LABS: INR 2.1; Prothrombin Time 24.1 Seconds (9.4-12.1)
[2020-11-22 01:36] LABS: Calcium 8.6 mg/dL (8.6-10.3); Potassium 4.4 mEq/L (3.5-5.1)
[2020-11-22] MEDS: *HR* Heparin 5,000 UNIT/ML VIAL SQ SCH (05:08)
[2020-11-22] MEDS: Insulin LISPRO 300 UNITS/3 ML VIAL SUBQ SCH ×2 (07:54→11:57)
[2020-11-22] MEDS: Chlorhexidine Rinse 15 ML MOUTHWASH MM SCH (07:56)
[2020-11-22] MEDS: *HR* Amiodarone 200 MG TABLET PO SCH (07:57)
[2020-11-22] MEDS: DilTIAZem CD (24hr) 180 MG CAP.ER.24H PO SCH (07:57)
[2020-11-22 11:54] VITALS: BP 106/59
[2020-11-22] MEDS ORDERED: *HR* Warfarin 2.5 MG TABLET PO ONE (18:00)
== END 2020-11-22 14:27 | disposition home health service (06) | DRG 229 ==
LOC: SAMDAY 06:40 → ICNU 14:50 → 2NNU 11-14 22:21
PROVIDERS: ADMIT Thoracic Surgery (Cardiothoracic Vascular Surgery); ATTEND Thoracic Surgery (Cardiothoracic Vascular Surgery)